=== PATIENT | female | born 1995 | race Caucasian/White ===

== ENCOUNTER 2017-07-07 22:47 | Emergency (ER) | payer BC ==
[2017-07-07] MEDS ORDERED: Sodium Chloride 0.9% 1,000 ML IV ONE (22:59)
[2017-07-07] MEDS ORDERED: Ondansetron 4 MG/2 ML SDV IVPUSH ONE (22:59)
--- NOTE | 2017-07-07 22:59 | EDM.PDOC ---
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 Patient is in no distress whatsoever and is nontender on exam, she had seen her OB provider Dr. Swathi young today and per patient states was unable to find heart tones, I believe she is here to get an ultrasound however heart tones in the 160s and normal lab and no actual pain or discomfort behaviors mom is feeling better with the heart tones in the 160s that were found tonight No fever nausea vomiting chills sweats no chest pain shortness breath headache dizziness palpitation no bowel or urine symptoms at time of dictation, is had some intermittent nausea she has taken Zofran at home prior to coming in ] Review of systems: As per history of present illness and below otherwise all systems reviewed and negative. Past medical history: As per history of present illness and as reviewed below otherwise noncontributory. Surgical history: As per history of present illness and as reviewed below otherwise noncontributory. Social history: No reported history of drug or alcohol abuse. Family history: As per history of present illness and as reviewed below otherwise noncontributory. Physical exam: HEENT: Atraumatic, normocephalic, pupils reactive, negative for conjunctival pallor or scleral icterus, mucous membranes moist, throat clear, neck supple, nontender, trachea midline. Lungs: Clear to auscultation, breath sounds equal bilaterally, chest nontender. Heart: S1S2, regular, negative for clicks, rubs, or JVD. Abdomen: Soft, nondistended, nontender. Negative for masses or hepatosplenomegaly. Negative for costovertebral tenderness. Pelvis: Stable nontender. Genitourinary: Deferred. Rectal: Deferred. Extremities: Atraumatic, negative for cords or calf pain. Neurovascular unremarkable. Neuro: Awake, alert, oriented. Cranial nerves II through XII unremarkable. Cerebellum unremarkable. Motor and sensory unremarkable throughout. Exam nonfocal. Diagnostics: CBC CMP UA hCG Quant ABO type ] Therapeutics: [1 L normal saline bolus Zofran 8 mg IV ] Impression: [ 11 weeks by uncertain dates IUD removed March 23 heart tones 160s Abdominal cramping ]-improved Mom reassured Definitive disposition and diagnosis as appropriate pending reevaluation and review of above. abdomen Pain Score (Numeric/FACES): 6 - Related Data Allergies Allergy/AdvReac Type Severity Reaction Status Date / Time No Known Allergies Allergy Verified 07/07/17 23:00 Home Meds: Home Meds Ondansetron [Zofran ODT] 1 tab PO ASDIRECTED PRN 07/07/17 [History] ED ROS GENERAL - Review of Systems Review Of Systems: ROS reveals no pertinent complaints other than HPI. ED EXAM, GENERAL - Physical Exam Exam: See Below Course - Vital Signs Last Recorded V/S: Last Vital Signs Temp 97.8 F 07/07/17 22:47 Pulse 82 07/07/17 22:47 Resp 18 07/07/17 22:47 BP 134/66 07/07/17 22:47 Pulse Ox 96 07/07/17 22:47 - Orders/Labs/Meds Orders: Active Orders 24 hr Category Date Time Status ABO/RH TYPE [BBK] Stat Lab 07/07/17 23:10 Received HCG QUALITATIVE,URINE [URCHEM] Stat Lab 07/07/17 23:15 Ordered UA W/MICROSCOPIC [URIN] Stat Lab 07/07/17 23:15 Ordered Sodium Chloride 0.9% [Normal Saline] 1,000 ml Med 07/08/17 00:02 Active IV .Bolus Medication Orders Sodium Chloride (Normal Saline) 1,000 mls @ 999 mls/hr IV .Bolus ONE Stop: 07/08/17 01:02 Last Admin: 07/08/17 00:04 Dose: 999 mls/hr Labs: Laboratory Tests 07/07/17 07/07/17 07/07/17 Range/Units 23:10 23:10 23:15 WBC 7.51 (4.0-11.0) K/uL RBC 4.26 L (4.30-5.90) M/uL Hgb 12.7 (12.0-16.0) g/dL Hct 36.2 (36.0-46.0) % MCV 85.0 (80.0-98.0) fL MCH 29.8 (27.0-32.0) pg MCHC 35.1 (31.0-37.0) g/dL RDW Std Deviation 38.8 (28.0-62.0) fl RDW Coeff of Nena 13 (11.0-15.0) % Plt Count 188 (150-400) K/uL MPV 10.50 (7.40-12.00) fL Neut % (Auto) 66.6 (48.0-80.0) % Lymph % (Auto) 26.9 (16.0-40.0) % [place] % (Auto) 5.5 (0.0-15.0) % Eos % (Auto) 0.9 (0.0-7.0) % Baso % (Auto) 0.1 (0.0-1.5) % Neut # (Auto) 5.0 (1.4-5.7) K/uL Lymph # (Auto) 2.0 (0.6-2.4) K/uL [place] # (Auto) 0.4 (0.0-0.8) K/uL Eos # (Auto) 0.1 (0.0-0.7) K/uL Baso # (Auto) 0.0 (0.0-0.1) K/uL Nucleated RBC % 0.0 /100WBC Nucleated RBCs # 0 K/uL Sodium 136 (136-145) mmol/L Potassium 3.5 (3.5-5.1) mmol/L Chloride 105 (98-107) mmol/L Carbon Dioxide 22.8 (21.0-32.0) mmol/L BUN 11 (7.0-18.0) mg/dL Creatinine 0.6 (0.6-1.0) mg/dL Est Cr Clr Drug Dosing 120.63 mL/min Estimated GFR (MDRD) > 60.0 ml/min Glucose 94 (74-106) mg/dL Calcium 9.1 (8.5-10.1) mg/dL Total Bilirubin 0.2 (0.2-1.0) mg/dL AST 12 L (15-37) IU/L ALT 15 (14-63) IU/L Alkaline Phosphatase 42 L (46-116) U/L Total Protein 7.1 (6.4-8.2) g/dL Albumin 3.7 (3.4-5.0) g/dL Globulin 3.4 (2.0-3.5) g/dL Albumin/Globulin Ratio 1.1 L (1.3-2.8) HCG, Quant 35977.0 mIU/mL Urine Color YELLOW Urine Appearance CLEAR Urine pH 6.0 (5.0-8.0) Ur Specific [place] 1.025 (1.001-1.035) Urine Protein NEGATIVE (NEGATIVE) mg/dL Urine Glucose (UA) NEGATIVE (NEGATIVE) mg/dL Urine Ketones NEGATIVE (NEGATIVE) mg/dL Urine Occult Blood NEGATIVE (NEGATIVE) Urine Nitrite NEGATIVE (NEGATIVE) Urine Bilirubin NEGATIVE (NEGATIVE) Urine Urobilinogen 2.0 H (<2.0) EU/dL Ur Leukocyte Esterase NEGATIVE (NEGATIVE) Urine RBC NONE SEEN (0-2/HPF) Urine WBC 0-2 (0-5/HPF) Ur Epithelial Cells MODERATE (NONE-FEW) Urine Bacteria FEW (NEGATIVE) Urine Mucus LIGHT (NONE-MOD) Urine HCG, Qual (NEGATIVE) 07/07/17 Range/Units 23:15 WBC (4.0-11.0) K/uL RBC (4.30-5.90) M/uL Hgb (12.0-16.0) g/dL Hct (36.0-46.0) % MCV (80.0-98.0) fL MCH (27.0-32.0) pg MCHC (31.0-37.0) g/dL RDW Std Deviation (28.0-62.0) fl RDW Coeff of Nena (11.0-15.0) % Plt Count (150-400) K/uL MPV (7.40-12.00) fL Neut % (Auto) (48.0-80.0) % Lymph % (Auto) (16.0-40.0) % [place] % (Auto) (0.0-15.0) % Eos % (Auto) (0.0-7.0) % Baso % (Auto) (0.0-1.5) % Neut # (Auto) (1.4-5.7) K/uL Lymph # (Auto) (0.6-2.4) K/uL [place] # (Auto) (0.0-0.8) K/uL Eos # (Auto) (0.0-0.7) K/uL Baso # (Auto) (0.0-0.1) K/uL Nucleated RBC % /100WBC Nucleated RBCs # K/uL Sodium (136-145) mmol/L Potassium (3.5-5.1) mmol/L Chloride (98-107) mmol/L Carbon Dioxide (21.0-32.0) mmol/L BUN (7.0-18.0) mg/dL Creatinine (0.6-1.0) mg/dL Est Cr Clr Drug Dosing mL/min Estimated GFR (MDRD) ml/min Glucose (74-106) mg/dL Calcium (8.5-10.1) mg/dL Total Bilirubin (0.2-1.0) mg/dL AST (15-37) IU/L ALT (14-63) IU/L Alkaline Phosphatase (46-116) U/L Total Protein (6.4-8.2) g/dL Albumin (3.4-5.0) g/dL Globulin (2.0-3.5) g/dL Albumin/Globulin Ratio (1.3-2.8) HCG, Quant mIU/mL Urine Color Urine Appearance Urine pH (5.0-8.0) Ur Specific [place] (1.001-1.035) Urine Protein (NEGATIVE) mg/dL Urine Glucose (UA) (NEGATIVE) mg/dL Urine Ketones (NEGATIVE) mg/dL Urine Occult Blood (NEGATIVE) Urine Nitrite (NEGATIVE) Urine Bilirubin (NEGATIVE) Urine Urobilinogen (<2.0) EU/dL Ur Leukocyte Esterase (NEGATIVE) Urine RBC (0-2/HPF) Urine WBC (0-5/HPF) Ur Epithelial Cells (NONE-FEW) Urine Bacteria (NEGATIVE) Urine Mucus (NONE-MOD) Urine HCG, Qual POSITIVE (NEGATIVE) Meds: Medications Generic Name Dose Route Start Last Admin Trade Name Freq PRN Reason Stop Dose Admin Sodium Chloride 1,000 mls @ 999 mls/hr 07/08/17 00:02 07/08/17 00:04 Normal Saline IV 07/08/17 01:02 999 mls/hr .Bolus ONE Administration Discontinued Medications Generic Name Dose Route Start Last Admin Trade Name Freq PRN Reason Stop Dose Admin Sodium Chloride 1,000 mls @ 999 mls/hr 04/24/18 22:59 07/07/17 23:10 Normal Saline IV 07/07/17 23:59 999 mls/hr STAT ONE Administration Ondansetron HCl 8 mg 07/07/17 22:59 07/08/17 00:03 Zofran IVPUSH 07/07/17 23:00 8 mg ONETIME ONE Administration Departure - Departure Time of Disposition: 00:52 Disposition: Home, Self-Care 01 Condition: Good Clinical Impression: - Discharge Information Referrals: Kailey Perez CNM [Primary Care Provider] - Forms: ED Department Discharge Additional Instructions: Follow-up with OB as scheduled in May Return if symptoms persist or worsen or new concerning symptoms develop The following information is given to patients seen in the emergency department who are being discharged to home. This information is to outline your options for follow-up care. We provide all patients seen in our emergency department with a follow-up referral. The need for follow-up, as well as the timing and circumstances, are variable depending upon the specifics of your emergency department visit. If you don't have a primary care physician on staff, we will provide you with a referral. We always advise you to contact your personal physician following an emergency department visit to inform them of the circumstance of the visit and for follow-up with them and/or the need for any referrals to a consulting specialist. The emergency department will also refer you to a specialist when appropriate. This referral assures that you have the opportunity for follow-up care with a specialist. All of these measure are taken in an effort to provide you with optimal care, which includes your follow-up. Under all circumstances we always encourage you to contact your private physician who remains a resource for coordinating your care. When calling for follow-up care, please make the office aware that this follow-up is from your recent emergency room visit. If for any reason you are refused follow-up, please contact the [facility] emergency department at and asked to speak to the emergency department charge nurse. - My Orders Last 24 Hours: My Active Orders 07/07/17 23:10 ABO/RH TYPE [BBK] Stat 07/07/17 23:15 HCG QUALITATIVE,URINE [URCHEM] Stat UA W/MICROSCOPIC [URIN] Stat 07/08/17 00:02 Sodium Chloride 0.9% [Normal Saline] 1,000 ml IV .Bolus - Assessment/Plan Last 24 Hours: My Active Orders 07/07/17 23:10 ABO/RH TYPE [BBK] Stat 07/07/17 23:15 HCG QUALITATIVE,URINE [URCHEM] Stat UA W/MICROSCOPIC [URIN] Stat 07/08/17 00:02 Sodium Chloride 0.9% [Normal Saline] 1,000 ml IV .Bolus
[2017-07-08] MEDS ORDERED: Sodium Chloride 0.9% 1,000 ML IV ONE (00:02)
[2017-07-08 00:04] LABS: CHLORIDE,CL 105 mmol/L (98-107); SODIUM,NA 136 mmol/L (136-145)
== END 2017-07-08 01:05 | disposition home or self-care (01) ==
LOC: MW.ED 22:47
DX: O99.89 Other specified diseases and conditions complicating pregnancy, childbirth and the puerperium (principal); R10.9 Unspecified abdominal pain; Z3A.11 11 weeks gestation of pregnancy
CPT/HCPCS: 36415; 80053; 81001; 81025; 84702; 85025; 86900; 86901; 96361; 96374; 99284; J2405; J7040

== ENCOUNTER 2019-08-18 06:37 | Day surgery (SDC) | payer OTHER ==
[2019-08-17 11:08] LABS: BLOOD UREA NITROGEN,BUN 11 mg/dL (7.0-18.0); CARBON DIOXIDE,CO2 26.2 mmol/L (21.0-32.0); CHLORIDE,CL 105 mmol/L (98-107); GLUCOSE RANDOM 89 mg/dL (74-106); POTASSIUM,K 4.4 mmol/L (3.5-5.1); SODIUM,NA 140 mmol/L (136-145)
[~2019-08-18 06:37] MED LIST: Sodium Chloride 0.9% 10 ML SDV IV PRN; Sodium Chloride 0.9% 10 ML Syringe FLUSH PRN; Sodium Chloride 0.9% 2.5 ML Syringe FLUSH PRN; ceFAZolin 2 GM in Premix Bag 1 BAG IV ONE
[2019-08-18] MEDS ORDERED: fentaNYL 250 MCG/5 ML SDV ONE (06:57)
[2019-08-18] MEDS ORDERED: Propofol 200 MG/20 ML SDV ONE (06:57)
[2019-08-18] MEDS ORDERED: Midazolam 1 MG/ML 2 ML SDV ONE (06:57)
[2019-08-18] MEDS ORDERED: Ondansetron 4 MG/2 ML SDV ONE (06:58)
[2019-08-18] MEDS ORDERED: Rocuronium 100 MG/10 ML Syringe ONE (06:58)
[2019-08-18] MEDS ORDERED: Lidocaine 2% 5 ML SDV ONE (06:58)
[2019-08-18] MEDS ORDERED: Dexamethasone 4 MG/ML 5 ML MDV ONE (06:58)
[2019-08-18] MEDS ORDERED: Ketorolac 30 MG/ML SDV ONE (06:58)
[2019-08-18] MEDS ORDERED: Glycopyrrolate 0.2 MG/ML SDV ONE (06:58)
[2019-08-18] MEDS ORDERED: Sugammadex Sodium 200 MG/2 ML VIAL ONE (07:04)
--- NOTE | 2019-08-18 07:21 | PCM.PREANE ---
Preanesthetic Assessment - Anesthesia/Transfusion/Family Hx Anesthesia History: Prior Anesthesia Without Reaction (spinal x3 for csections) Family History of Anesthesia Reaction: No Transfusion History: No Prior Transfusion(s) Intubation History: Unknown - Review of Systems General: No Symptoms Pulmonary: No Symptoms Cardiovascular: No Symptoms Gastrointestinal: No Symptoms Neurological: No Symptoms Other: Reports: None - Physical Assessment NPO Status Date: 08/17/19 Height: 5 ft 3 in Weight: 82.554 kg ASA Class: 2 Mental Status: Alert & Oriented x3 Airway Class: Mallampati = 2 Dentition: Reports: Normal Dentition ROM/Head Extension: Full Lungs: Clear to Auscultation, Normal Respiratory Effort Cardiovascular: Regular Rate, Regular Rhythm - Lab Values: Laboratory Last Values WBC 5.18 K/uL (4.0-11.0) 08/17/19 10:03 RBC 4.67 M/uL (4.30-5.90) 08/17/19 10:03 Hgb 13.5 g/dL (12.0-16.0) 08/17/19 10:03 Hct 39.9 % (36.0-46.0) 08/17/19 10:03 MCV 85.4 fL (80.0-98.0) 08/17/19 10:03 MCH 28.9 pg (27.0-32.0) 08/17/19 10:03 MCHC 33.8 g/dL (31.0-37.0) 08/17/19 10:03 RDW Std Deviation 37.4 fl (28.0-62.0) 08/17/19 10:03 RDW Coeff of Nena 12 % (11.0-15.0) 08/17/19 10:03 Plt Count 180 K/uL (150-400) 08/17/19 10:03 MPV 10.90 fL (7.40-12.00) 08/17/19 10:03 Nucleated RBC % 0.0 /100WBC 08/17/19 10:03 Nucleated RBCs # 0 K/uL 08/17/19 10:03 Sodium 140 mmol/L (136-145) 08/17/19 10:03 Potassium 4.4 mmol/L (3.5-5.1) 08/17/19 10:03 Chloride 105 mmol/L (98-107) 08/17/19 10:03 Carbon Dioxide 26.2 mmol/L (21.0-32.0) 08/17/19 10:03 BUN 11 mg/dL (7.0-18.0) 08/17/19 10:03 Creatinine 0.6 mg/dL (0.6-1.0) 08/17/19 10:03 Est Cr Clr Drug Dosing 118.57 mL/min 08/17/19 10:03 Estimated GFR (MDRD) > 60.0 ml/min 08/17/19 10:03 Glucose 89 mg/dL (74-106) 08/17/19 10:03 Calcium 8.8 mg/dL (8.5-10.1) 08/17/19 10:03 HCG, Qual NEGATIVE (NEG) 08/17/19 10:03 Blood Type A NEGATIVE 08/17/19 10:03 Antibody Screen NEGATIVE 08/17/19 10:03 - Allergies Allergies/Adverse Reactions: Allergies Allergy/AdvReac Type Severity Reaction Status Date / Time morphine Allergy Hives Verified 08/12/19 10:24 [id number] [From Nubain] Allergy Rash Verified 08/12/19 10:24 - Blood Blood Available: No - Anesthesia Plan Pre-Op Medication Ordered: None - Acknowledgements Anesthesia Type Planned: General Anesthesia Pt an Appropriate Candidate for the Planned Anesthesia: Yes Alternatives and Risks of Anesthesia Discussed w Pt/Guardian: Yes Pt/Guardian Understands and Agrees with Anesthesia Plan: Yes Additional Comments: PMH: asthma- inactive, PLAAN: get PreAnesthesia Questionnaire HEENT History: Reports: Other (See Below) Other HEENT History: wears glasses, permanent bottom retainer Cardiovascular History: Reports: Hypertension, Other (See Below) Other Cardiovascular History: hypertension with 1st Respiratory History: Reports: Asthma Gastrointestinal History: Reports: None Genitourinary History: Reports: None 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: Musculoskeletal History: Reports: Fracture Other Musculoskeletal History: hx fx left knee, left wrist and rt hand Neurological History: Reports: None Psychiatric History: Reports: Anxiety, Depression, Other (See Below) Other Psychiatric History: Depression Endocrine/Metabolic History: Reports: Obesity/BMI 30+ Hematologic History: Reports: None Immunologic History: Reports: None Other Oncologic History: skin cancer removed from back and arm Dermatologic History: Reports: Eczema - Infectious Disease History Infectious Disease History: Reports: Chicken Pox - Past Surgical History Head Surgeries/Procedures: Reports: None HEENT Surgical History: Reports: Oral Surgery Cardiovascular Surgical History: Reports: None Respiratory Surgical History: Reports: None GI Surgical History: Reports: None Female Surgical History: Reports: Section Other Female Surgeries/Procedures: previous c/sectrion x3 Endocrine Surgical History: Reports: None Neurological Surgical History: Reports: None Musculoskeletal Surgical History: Reports: None Oncologic Surgical History: Reports: None Dermatological Surgical History: Reports: Skin Biopsy - SUBSTANCE USE Smoking Status *Q: Never Smoker - HOME MEDS Home Medications: Home Meds Albuterol Sulfate 1 - 2 puff INH ASDIRECTED PRN 08/12/19 [History] Albuterol [Proventil HFA] 1 dose NEB Q4H PRN 08/12/19 [History] Triamcinolone Acetonide [Triamcinolone Acetonide 0.1% Crm] 1 applic TOP ASDIRECTED PRN 08/12/19 [History] - CURRENT (IN HOUSE) MEDS Current Meds: Current Medications Lactated Ringer's (Ringers, Lactated) 1,000 mls @ 125 mls/hr IV ASDIRECTED SHANTAL Sodium Chloride (Saline Flush) 10 ml FLUSH ASDIRECTED PRN PRN Reason: Keep Vein Open Sodium Chloride (Saline Flush) 2.5 ml FLUSH ASDIRECTED PRN PRN Reason: Keep Vein Open Sodium Chloride (Normal Saline) 10 ml IV ASDIRECTED PRN PRN Reason: IV Use Discontinued Medications Dexamethasone (Dexamethasone) Confirm Administered Dose 20 mg .ROUTE .STK-MED ONE Stop: 08/18/19 06:59 Fentanyl (Sublimaze) Confirm Administered Dose 250 mcg .ROUTE .STK-MED ONE Stop: 08/18/19 06:58 Glycopyrrolate (Robinul) Confirm Administered Dose 0.2 mg .ROUTE .STK-MED ONE Stop: 08/18/19 06:59 Cefazolin Sodium/Dextrose 2 gm (/ Premix) 50 mls @ 100 mls/hr IV ONETIME ONE Stop: 08/17/19 09:43 Ketorolac Tromethamine (Toradol) Confirm Administered Dose 30 mg .ROUTE .STK- MED ONE Stop: 08/18/19 06:59 Lidocaine (Xylocaine-Mpf 2%) Confirm Administered Dose 5 ml .ROUTE .STK-MED ONE Stop: 08/18/19 06:59 Midazolam HCl (Versed 1 Mg/Ml) Confirm Administered Dose 2 mg .ROUTE .STSimpleSite-MED ONE Stop: 08/18/19 06:58 Ondansetron HCl (Zofran) Confirm Administered Dose 4 mg .ROUTE .STSimpleSite-MED ONE Stop: 08/18/19 06:59 Propofol (Diprivan 20 Ml) Confirm Administered Dose 200 mg .ROUTE .Boxcar-MED ONE Stop: 08/18/19 06:58 Rocuronium [place] (Zemuron) Confirm Administered Dose 100 mg .ROUTE .STSimpleSite-MED ONE Stop: 08/18/19 06:59 Sugammadex Sodium (Bridion) Confirm Administered Dose 200 mg .ROUTE .Photos to PhotosMED ONE Stop: 08/18/19 07:05
[2019-08-18] MEDS ORDERED: Fluorescein 5 ML Vial ONE (07:33)
[2019-08-18] MEDS: Lactated Ringers 1,000 ML IV SCH ×2 (07:51→10:41)
[2019-08-18] MEDS ORDERED: ceFAZolin 1 GM Vial ONE (08:10)
[2019-08-18] MEDS ORDERED: Sodium Chloride 0.9% 20 ML ONE (08:10)
[2019-08-18] MEDS ORDERED: HYDROmorphone 2 MG/ML Syringe ONE (08:26)
[2019-08-18] MEDS ORDERED: fentaNYL 100 MCG/2 ML SDV IVPUSH PRN (08:29)
[2019-08-18] MEDS ORDERED: Acetaminophen 1,000 MG in Premix Bag 1 BAG IV PRN (08:29)
[2019-08-18] MEDS ORDERED: Octyl 2-Cyanoacrylate 1 Tube ONE (09:09)
[2019-08-18] MEDS ORDERED: Ketorolac 30 MG/ML SDV IVPUSH PRN (09:19)
[2019-08-18] MEDS ORDERED: Morphine 4 MG/ML Syringe IVPUSH PRN (09:19)
[2019-08-18] MEDS ORDERED: Ondansetron 4 MG/2 ML SDV IVPUSH PRN (09:19)
[2019-08-18] MEDS ORDERED: Ketorolac 30 MG/ML SDV IVPUSH ONE (09:19)
[2019-08-18] MEDS ORDERED: Promethazine 25 MG/ML SDV IM PRN (09:19)
[2019-08-18] MEDS ORDERED: Acetaminophen/oxyCODONE 325-5 MG Tab PO PRN (09:19)
--- NOTE | 2019-08-18 09:23 | PCM.OPNOTE ---
- General Post-Op/Procedure Note Date of Surgery/Procedure: 08/18/19 Operative Procedure(s): TLH, cystoscopy. Pre Op Diagnosis: Pelvic pain, bleeding Post-Op Diagnosis: Same Anesthesia Technique: General ET Tube Primary Surgeon: Khalif Lay EBL in mLs: 100 Complications: None Condition: Good
--- NOTE | 2019-08-18 10:07 | PCM.POSTAN ---
POST ANESTHESIA ASSESSMENT - MENTAL STATUS Mental Status: Alert, Oriented - VITAL SIGNS Vital Signs: Last Vital Signs Temp 36 C L 08/18/19 09:21 Pulse 68 08/18/19 10:01 Resp 12 08/18/19 10:01 BP 118/70 08/18/19 10:01 Pulse Ox 98 08/18/19 10:01 - RESPIRATORY Respiratory Status: Respiratory Rate WNL, Airway Patent, O2 Saturation Stable - CARDIOVASCULAR CV Status: Pulse Rate WNL, Blood Pressure Stable - GASTROINTESTINAL GI Status: No Symptoms - POST OP HYDRATION Hydration Status: Adequate & Stable
[2019-08-18] MEDS: Acetaminophen/oxyCODONE 325-5 MG Tab PO PRN ×3 (12:40→20:30)
[2019-08-18] MEDS ORDERED: diphenhydrAMINE 50 MG/ML SDV IM ONE (14:11)
--- NOTE | 2019-08-18 15:03 | OR ---
SURGEON: Khalif Lay MD DATE OF PROCEDURE: 08/18/2019 PREOPERATIVE DIAGNOSES: Pelvic pain; menometrorrhagia. POSTOPERATIVE DIAGNOSES: Pelvic pain, endometriosis of the pelvis, pelvic adhesion from her previous surgery, and menometrorrhagia. OPERATION PERFORMED: Total laparoscopic hysterectomy. PRIMARY SURGEON: Khalif Lay MD. METAL WEIGHER: OR tech. ANESTHESIA: General endotracheal intubation, Dr. Castro and Mr. Js Lang. ESTIMATED BLOOD LOSS: Less than 100 mL. COMPLICATIONS: None. FINDINGS: Multiple spots of endometriosis on the round ligament and on the uterosacral ligament from both sides, pelvic adhesion from her previous section. INDICATION FOR SURGERY: [place], refer to the admit note. PROCEDURE IN DETAIL: The patient was brought to the OR, properly identified, and after adequate level of anesthesia, the patient was placed in lithotomy position with an access to the abdomen and the vagina. The patient was prepped and draped in sterile fashion as usual. A weighted speculum was placed in the vagina and Rowell catheter was placed in the bladder for drainage and colpotomizer and manipulator were placed in the uterus for manipulation. After deploying and inflating the appropriate balloon over both of the manipulators, then the operation shifted abdominally. A stab wound done beneath the umbilicus. The Veress needle was placed in the peritoneal cavity and that cavity insufflated with 3.5 L of carbon dioxide, and then utilizing the Visiport technique the peritoneal cavity entered laparoscopically through the infraumbilical incision with a 5 mm trocar. Once we were safely in the peritoneum and there was no injury, then we proceeded to place the 10/12 trocar in the left iliac fossa and a 5 mm trocar in the right iliac fossa. The patient did already have bilateral salpingectomy for her tubal ligation. There was endometriosis in the pelvis and in the round ligament and there was adhesion of the bladder to the lower part of the uterus and the anterior part of the uterus. The operation started by identifying the landmark of the pelvis and using the Osvaldo Harmonic scalpel, the superior pedicle was coagulated and transected from both sides and both ovaries were preserved. The round ligament was coagulated and transected from both sides making sure this endometriosis part is included with the specimen. Then, the anterior leaf of the broad ligament dissected down more medially, pushing the bladder completely away from the operative field and freeing it and then I could feel easily the manipulator through the vagina. Then, skeletonization of the uterine vessel at the level of the manipulator was done and this uterine vessel was coagulated and transected with Osvaldo Harmonic scalpel on both sides. Then, circular incision in the vaginal mucosa using the Osvaldo Harmonic scalpel detaching the cervix from its attachment to the vagina and the uterus was removed vaginally. Thorough irrigation of the pelvis. Inspection of the pedicles shows no oozing, no bleeding. We proceeded to close the vaginal cuff laparoscopically using 2-0 PDS interrupted suture. While we were doing that, we asked Anesthesia to give the patient fluorescein and once we closed the vagina, the abdomen was deflated. Rowell catheter was removed. Cystoscopy is performed. The bladder was intact. Both ureteric orifices were seen with the dye coming from both of them. Thus, the patency of both ureters verified. Satisfied with this finding, the cystoscope was withdrawn after emptying the bladder and the multiple laparoscopic incisions were closed with 4-0 monofilament as subcuticular. Dermabond was used to seal the incision and Band-Aid was applied to those incisions. The instrument and sponge count was correct. The patient tolerated the procedure well and went to the recovery room in stable general condition. SOLEDAD / MARTINEZ /[id number]
[2019-08-19 06:14] LABS: BLOOD UREA NITROGEN,BUN 10 mg/dL (7.0-18.0); CARBON DIOXIDE,CO2 26.3 mmol/L (21.0-32.0); CHLORIDE,CL 103 mmol/L (98-107); GLUCOSE RANDOM 100 mg/dL (74-106); POTASSIUM,K 3.5 mmol/L (3.5-5.1); SODIUM,NA 138 mmol/L (136-145)
--- NOTE | 2019-08-19 07:07 | PCM48HPAN ---
Post Anesthesia Note - EVALUATION WITHIN 48HRS OF ANESTHETIC Vital Signs in Normal Range: Yes Patient Participated in Evaluation: Yes Respiratory Function Stable: Yes Airway Patent: Yes Cardiovascular Function Stable: Yes Hydration Status Stable: Yes Pain Control Satisfactory: Yes Nausea and Vomiting Control Satisfactory: Yes Mental Status Recovered: Yes Vital Signs: Last Vital Signs Temp 37 C 08/19/19 04:00 Pulse 84 08/19/19 04:00 Resp 14 08/19/19 04:00 BP 124/59 L 08/19/19 04:00 Pulse Ox 96 08/19/19 04:00 - COMMENTS/OBSERVATIONS Free Text/Narrative:: Doing well. Some soreness. Progressing as expected.
--- NOTE | 2019-08-19 08:14 | PCM.SURGPN ---
- General Info Date of Service: 08/19/19 POD#: 1 Functional Status: Reports: Pain Controlled - Review of Systems General: Reports: No Symptoms HEENT: Reports: No Symptoms Pulmonary: Reports: No Symptoms Cardiovascular: Reports: No Symptoms Gastrointestinal: Reports: No Symptoms Genitourinary: Reports: No Symptoms Musculoskeletal: Reports: No Symptoms Skin: Reports: No Symptoms Neurological: Reports: No Symptoms Psychiatric: Reports: No Symptoms - Patient Data Vitals - Most Recent: Last Vital Signs Temp 36.8 C 08/19/19 07:39 Pulse 65 08/19/19 07:39 Resp 15 08/19/19 07:39 BP 118/57 L 08/19/19 07:39 Pulse Ox 97 08/19/19 07:39 Weight - Most Recent: 82.554 kg I&O - Last 24 Hours: Intake & Output 08/18/19 08/19/19 08/19/19 22:59 06:59 14:59 Intake Total 1650 1850 Output Total 400 3075 Balance 1250 -1225 Lab Results Last 24 Hrs: Laboratory Results - last 24 hr 08/19/19 08/19/19 Range/Units 05:10 05:10 WBC 8.54 (4.0-11.0) K/uL RBC 4.10 L (4.30-5.90) M/uL Hgb 11.8 L (12.0-16.0) g/dL Hct 35.4 L (36.0-46.0) % MCV 86.3 (80.0-98.0) fL MCH 28.8 (27.0-32.0) pg MCHC 33.3 (31.0-37.0) g/dL RDW Std Deviation 38.2 (28.0-62.0) fl RDW Coeff of Nena 12 (11.0-15.0) % Plt Count 180 (150-400) K/uL MPV 11.10 (7.40-12.00) fL Neut % (Auto) 65.1 (48.0-80.0) % Lymph % (Auto) 27.4 (16.0-40.0) % [place] % (Auto) 6.1 (0.0-15.0) % Eos % (Auto) 1.3 (0.0-7.0) % Baso % (Auto) 0.1 (0.0-1.5) % Neut # (Auto) 5.6 (1.4-5.7) K/uL Lymph # (Auto) 2.3 (0.6-2.4) K/uL Knox # (Auto) 0.5 (0.0-0.8) K/uL Eos # (Auto) 0.1 (0.0-0.7) K/uL Baso # (Auto) 0.0 (0.0-0.1) K/uL Nucleated RBC % 0.0 /100WBC Nucleated RBCs # 0 K/uL Sodium 138 (136-145) mmol/L Potassium 3.5 (3.5-5.1) mmol/L Chloride 103 (98-107) mmol/L Carbon Dioxide 26.3 (21.0-32.0) mmol/L BUN 10 (7.0-18.0) mg/dL Creatinine 0.7 (0.6-1.0) mg/dL Est Cr Clr Drug Dosing 101.63 mL/min Estimated GFR (MDRD) > 60.0 ml/min Glucose 100 (74-106) mg/dL Calcium 8.3 L (8.5-10.1) mg/dL Med Orders - Current: Current Medications Acetaminophen 1,000 mg/ Premix 100 mls @ 400 mls/hr IV ONETIME PRN PRN Reason: Pain Last Admin: 08/18/19 09:50 Dose: 400 mls/hr Ketorolac Tromethamine (Toradol) 30 mg IVPUSH Q6H PRN PRN Reason: Pain (severe 7-10) Stop: 08/23/19 09:20 Last Admin: 08/18/19 22:45 Dose: 30 mg Ondansetron HCl (Zofran) 4 mg IVPUSH Q6H PRN PRN Reason: Nausea/Vomiting Oxycodone/Acetaminophen (Percocet 325-5 Mg) 1 tab PO Q4H PRN PRN Reason: Pain (moderate 4-6) Oxycodone/Acetaminophen (Percocet 325-5 Mg) 2 tab PO Q4H PRN PRN Reason: Pain (moderate 4-6) Last Admin: 08/18/19 20:30 Dose: 2 tab Promethazine HCl (Phenergan) 25 mg IM Q6H PRN PRN Reason: Nausea/Vomiting Sodium Chloride (Saline Flush) 10 ml FLUSH ASDIRECTED PRN PRN Reason: Keep Vein Open Sodium Chloride (Saline Flush) 2.5 ml FLUSH ASDIRECTED PRN PRN Reason: Keep Vein Open Sodium Chloride (Normal Saline) 10 ml IV ASDIRECTED PRN PRN Reason: IV Use Discontinued Medications Cefazolin Sodium (Ancef) Confirm Administered Dose 2 gm .ROUTE .STK-MED ONE Stop: 08/18/19 08:11 Dexamethasone (Dexamethasone) Confirm Administered Dose 20 mg .ROUTE .STK-MED ONE Stop: 08/18/19 06:59 Diphenhydramine HCl (Benadryl) 12.5 mg IM ONETIME ONE Stop: 08/18/19 14:12 Last Admin: 08/18/19 14:34 Dose: 12.5 mg Fentanyl (Sublimaze) Confirm Administered Dose 250 mcg .ROUTE .STK-MED ONE Stop: 08/18/19 06:58 Fentanyl (Sublimaze) 50 mcg IVPUSH Q5M PRN PRN Reason: Pain Last Admin: 08/18/19 09:55 Dose: 50 mcg Fluorescein Sodium (Ak-Fluor) Confirm Administered Dose 5 ml .ROUTE .STK-MED ONE Stop: 08/18/19 07:34 Glycopyrrolate (Robinul) Confirm Administered Dose 0.2 mg .ROUTE .STK-MED ONE Stop: 08/18/19 06:59 Hydromorphone HCl (Dilaudid) Confirm Administered Dose 2 mg .ROUTE .STK-MED ONE Stop: 08/18/19 08:27 Cefazolin Sodium/Dextrose 2 gm (/ Premix) 50 mls @ 100 mls/hr IV ONETIME ONE Stop: 08/17/19 09:43 Last Admin: 08/18/19 21:29 Dose: Not Given Lactated Ringer's (Ringers, Lactated) 1,000 mls @ 125 mls/hr IV ASDIRECTED SHANTAL Last Admin: 08/18/19 10:41 Dose: 125 mls/hr Sodium Chloride (Normal Saline) Confirm Administered Dose 20 mls @ as directed .ROUTE .STK-MED ONE Stop: 08/18/19 08:11 Acetaminophen (Ofirmev) Confirm Administered Dose 100 mls @ as directed .ROUTE .STK-MED ONE Stop: 08/18/19 09:48 Ketorolac Tromethamine (Toradol) Confirm Administered Dose 30 mg .ROUTE .STK- MED ONE Stop: 08/18/19 06:59 Ketorolac Tromethamine (Toradol) 30 mg IVPUSH ONETIME ONE Stop: 08/18/19 09:20 Last Admin: 08/18/19 09:49 Dose: 30 mg Lidocaine (Xylocaine-Mpf 2%) Confirm Administered Dose 5 ml .ROUTE .STK-MED ONE Stop: 08/18/19 06:59 Midazolam HCl (Versed 1 Mg/Ml) Confirm Administered Dose 2 mg .ROUTE .STK-MED ONE Stop: 08/18/19 06:58 Morphine Sulfate (Morphine) 4 mg IVPUSH Q2H PRN PRN Reason: Pain (severe 7-10) Octyl Cyanoacrylate (Dermabond Advance) Confirm Administered Dose 1 applic .ROUTE .STK-MED ONE Stop: 08/18/19 09:10 Ondansetron HCl (Zofran) Confirm Administered Dose 4 mg .ROUTE .STK-MED ONE Stop: 08/18/19 06:59 Propofol (Diprivan 20 Ml) Confirm Administered Dose 200 mg .ROUTE .STK-MED ONE Stop: 08/18/19 06:58 Rocuronium [place] (Zemuron) Confirm Administered Dose 100 mg .ROUTE .STK-MED ONE Stop: 08/18/19 06:59 Sugammadex Sodium (Bridion) Confirm Administered Dose 200 mg .ROUTE .STK-MED ONE Stop: 08/18/19 07:05 - Exam Wound/Incisions: Healing Well General: Alert, Oriented HEENT: Pupils Equal Neck: Supple Lungs: Clear to Auscultation, Normal Respiratory Effort Cardiovascular: Regular Rate, Regular Rhythm GI/Abdominal Exam: Normal Bowel Sounds, Soft, Non-Tender, No Organomegaly, No Distention, No Abnormal Bruit, No Mass, Pelvis Stable Extremities: Normal Inspection, Normal Range of Motion, Non-Tender, No Pedal Edema, Normal Capillary Refill Skin: Warm, Dry, Intact Neurological: No New Focal Deficit Psy/Mental Status: Alert, Normal Affect, Normal Mood Sepsis Event Note - Evaluation Sepsis Screening Result: No Definite Risk - Focused Exam Vital Signs: Vital Signs Temp Pulse Resp BP Pulse Ox 08/19/19 07:39 36.8 C 65 15 118/57 L 97 08/19/19 04:00 37 C 84 14 124/59 L 96 08/19/19 00:00 36.7 C 91 14 139/88 94 L Date Exam was Performed: 08/19/19 Time Exam was Performed: 08:12 - Problem List Review Problem List Initiated/Reviewed/Updated: Yes - My Orders Last 24 Hours: Active Orders 24 hr Category Date Time Status Patient Status [ADT] Routine ADT 08/18/19 09:20 Active Antiembolic Devices [RC] PER UNIT ROUTINE Care 08/18/19 09:20 Active Notify Provider Vital Signs [RC] ASDIRECTED Care 08/18/19 09:20 Active Oxygen Therapy [RC] ASDIRECTED Care 08/18/19 09:20 Active RT Incentive Spirometry [RC] Q2HWA Care 08/18/19 09:20 Active Up With Assistance [RC] PER UNIT ROUTINE Care 08/18/19 09:20 Active Up ad Nai [RC] PER UNIT ROUTINE Care 08/18/19 09:20 Active Vital Signs [RC] Q4H Care 08/18/19 09:20 Active Regular Diet [DIET] Diet 08/18/19 Lunch Active Acetaminophen [Ofirmev] 1,000 mg Med 08/18/19 08:29 Active Premix Bag 1 bag IV ONETIME Acetaminophen/oxyCODONE [Percocet 325-5 MG] Med 08/18/19 09:19 Active 1 tab PO Q4H PRN Acetaminophen/oxyCODONE [Percocet 325-5 MG] Med 08/18/19 09:19 Active 2 tab PO Q4H PRN Ketorolac [Toradol] Med 08/18/19 09:19 Active 30 mg IVPUSH Q6H PRN Ondansetron [Zofran] Med 08/18/19 09:19 Active 4 mg IVPUSH Q6H PRN Promethazine [Phenergan] Med 08/18/19 09:19 Active 25 mg IM Q6H PRN Peripheral IV Discontinue [OM.PC] Routine Oth 08/18/19 09:20 Ordered Sequential Compression Device [OM.PC] Per Unit Routine Oth 08/18/19 09:20 Ordered Resuscitation Status Routine Resus Stat 08/18/19 09:19 Ordered Medication Orders Acetaminophen 1,000 mg/ Premix 100 mls @ 400 mls/hr IV ONETIME PRN PRN Reason: Pain Last Admin: 08/18/19 09:50 Dose: 400 mls/hr Ketorolac Tromethamine (Toradol) 30 mg IVPUSH Q6H PRN PRN Reason: Pain (severe 7-10) Stop: 08/23/19 09:20 Last Admin: 08/18/19 22:45 Dose: 30 mg Ondansetron HCl (Zofran) 4 mg IVPUSH Q6H PRN PRN Reason: Nausea/Vomiting Oxycodone/Acetaminophen (Percocet 325-5 Mg) 1 tab PO Q4H PRN PRN Reason: Pain (moderate 4-6) Oxycodone/Acetaminophen (Percocet 325-5 Mg) 2 tab PO Q4H PRN PRN Reason: Pain (moderate 4-6) Last Admin: 08/18/19 20:30 Dose: 2 tab Admin: 08/18/19 16:10 Dose: 2 tab Admin: 08/18/19 12:40 Dose: 2 tab Promethazine HCl (Phenergan) 25 mg IM Q6H PRN PRN Reason: Nausea/Vomiting Sodium Chloride (Saline Flush) 10 ml FLUSH ASDIRECTED PRN PRN Reason: Keep Vein Open Sodium Chloride (Saline Flush) 2.5 ml FLUSH ASDIRECTED PRN PRN Reason: Keep Vein Open Sodium Chloride (Normal Saline) 10 ml IV ASDIRECTED PRN PRN Reason: IV Use - Assessment Assessment (Free Text/Narrative):: Status post total laparoscopic hysterectomy postoperative day #1 the patient is doing well she have no complication she have no bleeding issues on regular diet she is ambulatory she is voiding without any problem. - Plan Plan (Free Text/Narrative):: Patient will be discharged today the postvasectomy instruction is given to the patient there is no restriction on her diet a prescription for Narco 5/325 for postoperative pain is given to the patient and she is already have an appointment to see me in the office next Thursday
== END 2019-08-19 09:40 | disposition home or self-care (01) ==
LOC: MW.SDS 06:37 → MW.MS 09:44 → MW.SDS 08-19 09:40
PROVIDERS: ATTEND Obstetrics & Gynecology
DX: N80.0 Endometriosis of uterus (principal); N72 Inflammatory disease of cervix uteri; N73.6 Female pelvic peritoneal adhesions (postinfective); I10 Essential (primary) hypertension; D64.9 Anemia, unspecified; J45.909 Unspecified asthma, uncomplicated; E66.9 Obesity, unspecified; F41.9 Anxiety disorder, unspecified; F32.9 Major depressive disorder, single episode, unspecified; Z79.899 Other long term (current) drug therapy; Z68.32 Body mass index [BMI] 32.0-32.9, adult; Z88.5 Allergy status to narcotic agent; Z88.8 Allergy status to other drugs, medicaments and biological substances; Z97.5 Presence of (intrauterine) contraceptive device; Z98.890 Other specified postprocedural states
CPT/HCPCS: 36415; 58570; 80048; 84703; 85025; 85027; 86850; 86900; 86901; 88307; A9270; J0131; J0690; J1100; J1170; J1200; J1885; J2001; J2250; J2405; J2704; J3010; J3490; J7120

== ENCOUNTER 2021-05-25 18:46 | Emergency (ER) | payer OTHER ==
[2021-05-25] MEDS ORDERED: Ondansetron 4 MG/2 ML SDV IVPUSH ONE (19:37)
[2021-05-25] MEDS ORDERED: HYDROmorphone 1 MG/ML Syringe IVPUSH ONE (19:38)
[2021-05-25] MEDS ORDERED: Sodium Chloride 0.9% 2.5 ML Syringe FLUSH PRN (19:38)
[2021-05-25] MEDS ORDERED: Sodium Chloride 0.9% 10 ML Syringe FLUSH PRN (19:38)
[2021-05-25] MEDS ORDERED: diphenhydrAMINE 50 MG/ML SDV IVPUSH ONE (20:04)
[2021-05-25 20:27] LABS: ESTIMATED GFR 23.3 ml/min; POTASSIUM,K 3.4 mmol/L (3.5-5.1)
[2021-05-25] MEDS ORDERED: Sodium Chloride 0.9% 1,000 ML IV ONE (20:51)
== END 2021-05-25 21:56 | disposition home or self-care (01) ==
LOC: MW.ED 18:46
DX: M54.50 Low back pain, unspecified (principal); I10 Essential (primary) hypertension; E66.9 Obesity, unspecified; Z68.32 Body mass index [BMI] 32.0-32.9, adult; Z91.040 Latex allergy status; Z88.5 Allergy status to narcotic agent; Z88.8 Allergy status to other drugs, medicaments and biological substances
CPT/HCPCS: 36415; 80053; 81001; 85025; 96374; 96375; 99283; 99283-25; J1170; J1200; J2405; J3490; J7030